=== PATIENT | female | born 1965 | race Caucasian/White ===

== ENCOUNTER → 2022-09-13 10:18 | Outpatient (CLI) | payer OTHER, SELFPAY ==
[2022-09-13 11:01] LABS: Basophils # 0.1 K/mm3 (0-0.2); Basophils % 0.8 % (0.1-2.0); Eosinophils # 0.2 K/mm3 (0.0-0.4); Eosinophils % 2.6 % (0.1-12.0); Hematocrit 45.2 % (37.0-47.0); Hemoglobin 14.2 g/dL (12.2-16.2); Lymphocytes # 2.5 K/mm3 (0.7-4.5); Mean Corpuscular HGB Conc 31.5 g/dL (31.8-35.4); Mean Corpuscular Hemoglobin 28.5 pg (27.0-31.2); Mean Corpuscular Volume 90.5 fl (81-99); Mean Platelet Volume 10.2 fl (7.4-10.4); Monocytes # 0.2 K/mm3 (0.1-1.0); Monocytes % 3.7 % (1.7-9.3); Neutrophils # 2.8 K/mm3 (1.8-7.8); Neutrophils % 48.9 % (37.0-80.0); Platelet Count 166 K/mm3 (142-424); Red Blood Count 4.99 M/mm3 (4.20-5.40); Red Cell Distribution Width 13.6 % (11.5-17.5); White Blood Count 5.7 K/mm3 (4.8-10.8)
[2022-09-13 11:02] LABS: Alanine Aminotransferase 28 U/L (12-78); Albumin Level 4.6 g/dl (3.5-5.0); Albumin/Globulin Ratio 1.2 (1.1-1.8); Alkaline Phosphatase 91 U/L (38-126); Anion Gap 15.5 mEq/L (5-15); Aspartate Amino Transferase 42 U/L (14-36); Bilirubin,Total 0.7 mg/dl (0.2-1.3); Blood Urea Nitrogen 15 mg/dl (7-17); Calcium 9.5 mg/dl (8.4-10.2); Carbon Dioxide 24 mmol/L (22.0-30.0); Chloride 107 mmol/L (98-107); Chol/HDL Ratio 3.5 (1-3.5); Cholesterol 268 mg/dl (140-200); Estimated Glomerular Filt Rate 86 ml/min (>60); GFR (African American) 104 ML/MIN (>60); Globulin 3.7 g/dL (1.3-3.2); Glucose 85 mg/dl (74-100); HDL Cholesterol 76 mg/dl (40-60); Potassium 4.5 mmoL/L (3.5-5.1); Sodium 142 mmol/L (136-145); Total Protein,Serum 8.3 g/dl (6.3-8.2); Triglycerides 126 mg/dl (30-150); VLDL Cholesterol 25 mg/dL (0-40)
[2022-09-13 11:12] LABS: Direct LDL Cholesterol 111.41 mg/dL (100-129)
[2022-09-13 12:20] LABS: Free Thyroxine Index 3.6 ug/dL (5.93-13.13); T4 (Thyroxine) 12.7 ug/dl (5.53-11.0); Triiodothryronine (T3) Uptake 28 % (23.5-40.5)
[2022-09-13 12:34] LABS: Thyroid Stimulating Hormone 0.29 uIU/mL (0.465-4.68)
== END ==
PROVIDERS: PCP Obstetrics & Gynecology; Visit Provider Obstetrics & Gynecology
DX: Z00.00 Encounter for general adult medical examination without abnormal findings (principal); N95.1 Menopausal and female climacteric states
CPT/HCPCS: 36415; 80053; 80061; 84436; 84443; 84479; 85025

== ENCOUNTER → 2022-09-20 15:40 | Outpatient (CLI) | payer OTHER, SELFPAY ==
--- NOTE | 2022-09-20 15:54 | MM_ITS ---
PROCEDURE INFORMATION: Exam: MG Bilateral Screening 3D Mammography Exam date and time: 09/20/2022 3:49 PM Age: 56 years old Clinical indication: Screening examination TECHNIQUE: Imaging protocol: Bilateral Screening tomosynthesis and 2D mammography including computer-aided detection (CAD) when performed. COMPARISON: No relevant prior studies available. FINDINGS: MAMMOGRAPHY: Breast composition: There are scattered areas of fibroglandular density. Mass: None. Architectural distortion: None. Calcifications: No suspicious calcifications. Asymmetric density: None. Skin thickening: None. Axillary adenopathy: None. IMPRESSION: No mammographic evidence of malignancy. Annual screening is recommended unless otherwise clinically indicated. ASSESSMENT: BI-RADS Category 1: Negative
[2022-09-22 10:47] LABS: Thyroid Peroxidase Antibodies 162 IU/mL (0-34)
[2022-09-24 10:12] LABS: Thyroid Stimulating Immunoglob <0.10 IU/L (0.00-0.55)
== END ==
PROVIDERS: PCP Obstetrics & Gynecology; Visit Provider Obstetrics & Gynecology
DX: Z12.31 Encounter for screening mammogram for malignant neoplasm of breast (principal); E05.90 Thyrotoxicosis, unspecified without thyrotoxic crisis or storm
CPT/HCPCS: 36415; 77063; 77067; 84445; 86376

== ENCOUNTER → 2022-09-29 23:29 | Outpatient (CLI) | payer OTHER, SELFPAY ==
[2022-09-29 18:09] LABS: Thyroid Stimulating Hormone 0.15 uIU/mL (0.465-4.68)
== END ==
PROVIDERS: PCP Internal Medicine; Visit Provider Obstetrics & Gynecology
DX: E05.90 Thyrotoxicosis, unspecified without thyrotoxic crisis or storm (principal)
CPT/HCPCS: 84439; 84443

== ENCOUNTER → 2022-10-14 09:52 | Outpatient (CLI) | payer OTHER, SELFPAY ==
--- NOTE | 2022-10-14 09:58 | US_ITS ---
FINAL REPORT CLINICAL HISTORY: Subclinical Hyperthyroidism COMPARISON: None FINDINGS: THYROID ULTRASOUND: The right lobe of the thyroid is enlarged, measuring 5.7 x 1.7 x 1.8 cm in size. The right lobe is heterogeneous in texture. There is a cystic nodule in the right lobe of the thyroid, measuring 4 x 3 x 2 mm in size, a TI-RADS category 1 nodule. The left lobe of the thyroid is enlarged, measuring 5.3 x 1.5 x 1.7 cm in size, and also heterogeneous in texture. There is a 5 x 8 x 4 mm solid hypoechoic nodule in the left lobe of the thyroid gland, a TI-RADS category 4 nodule. The isthmus of the thyroid is 7 mm in size, also heterogeneous in texture. IMPRESSION: Enlarged heterogeneous thyroid gland, as described. Two small nodules are identified, 1 in the right lobe and 1 in the left lobe. Neither nodule requires follow-up by TI-RADS category and size evaluation. Reviewed, Interpreted and Dictated by Joel Jeff III, MD Transcribed by Tatiana Montemayor Authenticated and . [facility]
== END ==
PROVIDERS: PCP Internal Medicine; Visit Provider Internal Medicine
DX: E05.90 Thyrotoxicosis, unspecified without thyrotoxic crisis or storm (principal); R76.8 Other specified abnormal immunological findings in serum
CPT/HCPCS: 76536

== ENCOUNTER 2023-02-24 15:48 | Outpatient (CLI) | payer OTHER, SELFPAY ==
[2023-02-24 16:23] LABS: Basophils # 0.1 K/mm3 (0-0.2); Basophils % 0.7 % (0.1-2.0); Eosinophils # 0.1 K/mm3 (0.0-0.4); Hemoglobin 14.9 g/dL (12.2-16.2); Lymphocytes # 2.8 K/mm3 (0.7-4.5); Lymphocytes % 40.8 % (10-50); Mean Corpuscular Hemoglobin 31.1 pg (27.0-31.2); Mean Corpuscular Volume 91.5 fl (81-99); Mean Platelet Volume 9.9 fl (7.4-10.4); Monocytes # 0.3 K/mm3 (0.1-1.0); Monocytes % 4.9 % (1.7-9.3); Neutrophils # 3.6 K/mm3 (1.8-7.8); Neutrophils % 52.7 % (37.0-80.0); Platelet Count 190 K/mm3 (142-424); Red Blood Count 4.81 M/mm3 (4.20-5.40); Red Cell Distribution Width 13.7 % (11.5-17.5); White Blood Count 6.8 K/mm3 (4.8-10.8)
[2023-02-24 16:42] LABS: Chloride 102 mmol/L (98-107); Potassium 4.8 mmoL/L (3.5-5.1); Sodium 139 mmol/L (136-145)
[2023-02-24 16:45] LABS: Alanine Aminotransferase 24 U/L (12-78); Albumin Level 4.5 g/dl (3.5-5.0); Albumin/Globulin Ratio 1.5 (1.1-1.8); Alkaline Phosphatase 67 U/L (38-126); Anion Gap 13.8 mEq/L (5-15); Aspartate Amino Transferase 28 U/L (14-36); Bilirubin,Total 0.8 mg/dl (0.2-1.3); Blood Urea Nitrogen 11 mg/dl (7-17); Calcium 9.5 mg/dl (8.4-10.2); Carbon Dioxide 28 mmol/L (22.0-30.0); Estimated Glomerular Filt Rate 64 ml/min (>60); GFR (African American) 78 ML/MIN (>60); Globulin 3.1 g/dL (1.3-3.2); Glucose 83 mg/dl (74-100); Total Protein,Serum 7.6 g/dl (6.3-8.2)
[2023-02-24 17:03] LABS: 25-OH Vitamin D, Total 28.1 ng/mL (30-100)
[2023-02-24 17:21] LABS: Ferritin 126 ng/ml (11.1-264)
[2023-02-24 17:50] LABS: Vitamin B12 > 1000 pg/mL (239-931)
[2023-02-24 17:56] LABS: Folate 9.26 ng/mL
== END 2023-02-24 23:59 ==
LOC: LAB 15:49
PROVIDERS: PCP Internal Medicine; Visit Provider Obstetrics & Gynecology
DX: E05.90 Thyrotoxicosis, unspecified without thyrotoxic crisis or storm (principal); R63.4 Abnormal weight loss; R76.8 Other specified abnormal immunological findings in serum; Z86.2 Personal history of diseases of the blood and blood-forming organs and certain disorders involving the immune mechanism; E55.9 Vitamin D deficiency, unspecified; E88.810 Metabolic syndrome
CPT/HCPCS: 36415; 80053; 82306; 82607; 82728; 82746; 83735; 85025

== ENCOUNTER 2023-09-22 10:38 | Outpatient (CLI) | payer OTHER, SELFPAY ==
[2023-09-22 11:37] LABS: Basophils # 0.1 K/mm3 (0-0.2); Basophils % 1.3 % (0.1-2.0); Eosinophils # 0.1 K/mm3 (0.0-0.4); Eosinophils % 1.3 % (0.1-12.0); Hematocrit 45.9 % (37.0-47.0); Hemoglobin 14.4 g/dL (12.2-16.2); Lymphocytes # 2.3 K/mm3 (0.7-4.5); Mean Corpuscular HGB Conc 31.3 g/dL (31.8-35.4); Mean Corpuscular Hemoglobin 30.2 pg (27.0-31.2); Mean Corpuscular Volume 96.4 fl (81-99); Mean Platelet Volume 10.4 fl (7.4-10.4); Monocytes # 0.3 K/mm3 (0.1-1.0); Monocytes % 4.8 % (1.7-9.3); Neutrophils # 2.6 K/mm3 (1.8-7.8); Neutrophils % 49.6 % (37.0-80.0); Platelet Count 190 K/mm3 (142-424); Red Blood Count 4.76 M/mm3 (4.20-5.40); Red Cell Distribution Width 13.8 % (11.5-17.5); White Blood Count 5.3 K/mm3 (4.8-10.8)
[2023-09-22 12:28] LABS: Alanine Aminotransferase 18 U/L (12-78); Albumin Level 4.1 g/dl (3.5-5.0); Albumin/Globulin Ratio 1.3 (1.1-1.8); Alkaline Phosphatase 80 U/L (38-126); Anion Gap 10.5 mEq/L (5-15); Aspartate Amino Transferase 26 U/L (14-36); Bilirubin,Total 0.6 mg/dl (0.2-1.3); Blood Urea Nitrogen 19 mg/dl (7-17); Calcium 9.4 mg/dl (8.4-10.2); Carbon Dioxide 27 mmol/L (22.0-30.0); Chloride 105 mmol/L (98-107); Cholesterol 227 mg/dl (140-200); Estimated Glomerular Filt Rate 74 ml/min (>60); GFR (African American) 89 ML/MIN (>60); Globulin 3.1 g/dL (1.3-3.2); Glucose 73 mg/dl (74-100); Magnesium 1.9 mg/dl (1.6-2.3); Potassium 4.5 mmoL/L (3.5-5.1); Sodium 138 mmol/L (136-145); Total Protein,Serum 7.2 g/dl (6.3-8.2)
[2023-09-22 12:46] LABS: Free T4 (Free Thyroxine) 1.19 ng/dl (0.78-2.19)
[2023-09-22 12:58] LABS: Thyroid Stimulating Hormone < 0.02 uIU/mL (0.465-4.68)
--- NOTE | 2023-09-22 13:08 | MM_ITS ---
PROCEDURE INFORMATION: Exam: MG Bilateral Screening 3D Mammography Exam date and time: 09/22/2023 1:03 PM Age: 57 years old Clinical indication: Screening exam. TECHNIQUE: Imaging protocol: Bilateral Screening tomosynthesis and 2D mammography including computer-aided detection (CAD) when performed. COMPARISON: MG MM DIG SCREENING MAMM BI W/CAD 09/20/2022 3:49 PM FINDINGS: MAMMOGRAPHY: Breast composition: There are scattered areas of fibroglandular density. Mass: No suspicious masses. Architectural distortion: None. Calcifications: No suspicious calcifications. Asymmetric density: None. Skin thickening: None. Axillary adenopathy: None. IMPRESSION: No mammographic evidence of malignancy. Annual screening is recommended unless otherwise clinically indicated. ASSESSMENT: BI-RADS Category 1: Negative
[2023-09-23 08:36] LABS: Thyroid Peroxidase Antibodies 293 IU/mL (0-34); Triiodothyronine (T3) Total 106 ng/dL (71-180)
[2023-09-25 15:29] LABS: Thyroglobulin Level <1.0 IU/mL (0.0-0.9)
[2023-09-29 10:02] LABS: Antinuclear Antibodies (ANA) NEGATIVE; Triiodothyronine (T3) Reverse 26.6
[2023-10-06 09:16] LABS: 1,25 Dihydroxy Vitamin D 33 pg/mL (.); 1,25-Dihydroxy, Vitamin D-2 <10 pg/mL (.); 1,25-Dihydroxy, Vitamin D-3 33 pg/mL (.)
== END 2023-09-22 23:59 | disposition home or self-care (01) ==
LOC: RAD 10:39
PROVIDERS: Nurse Practitioner Family; PCP Internal Medicine; Visit Provider Obstetrics & Gynecology
DX: N95.1 Menopausal and female climacteric states (principal); E05.90 Thyrotoxicosis, unspecified without thyrotoxic crisis or storm; R76.8 Other specified abnormal immunological findings in serum; Z86.2 Personal history of diseases of the blood and blood-forming organs and certain disorders involving the immune mechanism; R63.4 Abnormal weight loss; E06.3 Autoimmune thyroiditis; Z12.31 Encounter for screening mammogram for malignant neoplasm of breast; E55.9 Vitamin D deficiency, unspecified
CPT/HCPCS: 36415; 77063; 77067; 80050; 80053; 82465; 82652; 83735; 84439; 84443; 84480; 84482; 85025; 86038; 86225; 86235; 86376; 86800

== ENCOUNTER 2024-09-27 16:27 | Outpatient (CLI) | payer OTHER, SELFPAY ==
--- OUTSIDE RECORDS SUMMARY | 2024-09-27 16:29 | XMS_ITS | Clinical Summary ---
Author Organization [facility] Address [address] [place] [address] Care Team Providers Care Infectious Diseases Physician Name Role Phone Jeison Balderrama Alcon Primary Care Provider + Allergies No known active allergies Medications estradiol (VIVELLE-DOT) 0.0375 MG/24HR patch Place 1 patch on the skin as directed by provider 2 (Two) Times a Week. 8 patch 2 0 Active progesterone (PROMETRIUM) 100 MG capsule Take 1 capsule by mouth Every Night. 30 capsule 2 0 Active losartan (COZAAR) 50 MG tablet Take 1 tablet by mouth Daily. 3 Active Progesterone (PROMETRIUM) 100 MG capsule Take 1 capsule by mouth Daily. 3 Active Mounjaro 7.5 MG/0.5ML solution pen-injector pen Inject 0.5 mL under the skin into the appropriate area as directed 1 (One) Time Per Week. 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 07/23/2019 Family History Medical History Relation Name Comments Hypertension Father Cassia Brown Pulmonary embolism Father Cassia Brown Rheum arthritis Maternal Grandmother Autoimmune disease Mother affected liver, had transplant Autoimmune disease Sister affecting liver Rheum arthritis Sister Breast cancer Neg Hx Colon cancer Neg Hx Malig Hyperthermia Neg Hx Ovarian cancer Neg Hx Uterine cancer Neg Hx Relation Name Status Comments Father Cassia Brown Maternal Grandmother Mother Sister Alive Social History Tobacco Use Types Packs/Day Years Used Date Smoking Tobacco: Never Smokeless Tobacco: Never Alcohol Use Standard Drinks/Week Comments Yes 1 (1 standard drink = 0.6 oz pur e alcohol) socially AUDIT-C Answer Date Recorded Q1: How often do you have a drink containing alc ohol? 2-4 times a month 06/20/2019 Average Number of Drinks Not on file 020 Frequency of Binge Drinking Not on file 06/06 Abuse Screen Answer Date Recorded Unsafe at Home or Work/School Not on file Feels Threatened by Someone? Not on file 01/2023 Does Anyone Keep You from Co ntacting Others or Doint Things Outside the Home? Not on file 11/17/2022 Physical Sign of Abuse Present Not on file 1 Housing Stability Answer Date Recorded Current Living Arrangements Not on file 11/06 Potentially Unsafe Housing Conditions Not on rand e 11/17/2022 Family and Community Support Answer Carroll e Recorded Help with Day-to-Day Activities Not on file 11/17/2022 Lonely or Isolated Not on file 11/17/2022 Employment Answer Date Recorded Do you want help finding or keeping work or a nabil b? Not on file 11/17/2022 Disabilities Answer Date Recorded Concentrating, Remembering, or Making Decisions Difficulty Not on file 11/17/2022 Doing Errands Independently Difficulty Not on fi le 11/17/2022 Education Answer Date Recorded Help with school or training? Not on file Preferred Language Not on file 11/17/2022 Comments No Sex and Gender Information Value Date Recorded Sex Assigned at Not on file Legal Sex Female 1:42 PM EST Gender Identity Not on file Sexual Orientation Not on file Last Filed Vital Signs Vital Sign Reading Time Taken Comments Blood Pressure 126/74 02/17/2023 8:07 AM EST Pulse 68 02/17/2023 8:07 AM EST Temperature 36.2 C (97.1 F) 08/06/2019 8:25 AM EDT Respiratory Rate 16 08/06/2019 8:50 AM EDT Oxygen Saturation 97% 02/17/2023 8:07 AM EST Inhaled Oxygen Concentration - - Weight 66.7 kg (147 lb) 02/17/2023 8:07 AM EST Height 149.9 cm (4' 11 ) 02/17/2023 8:07 AM EST Body Mass Index 29.69 02/17/2023 8:07 AM EST Plan of Treatment Health Maintenance Due Date Last Done Comments TDAP/TD VACCINES (1 - Tdap) 12/12/1983 COLOGUARD 2009 COLON CANCER SCREENING 5 YEAR SIGMOIDOSCOPY 2009 COLONOSCOPY [address] SCREENING [address] COLONOGRAPHY 2009 FECAL OCCULT BLOOD TEST 2009 FIT Testing (1 year) 2009 Pneumococcal Vaccine 50+ (1 of 1 - PCV) 2014 ZOSTER VACCINE (1 of 2) 2014 ANNUAL PHYSICAL 06/20/2019 HEPATITIS C SCREENING 06/20/2019 Annual Gynecologic Pelvic and Breast Exam 06/20/2020 06/20/2019 MAMMOGRAM 08/15/2021 08/16/2019 COVID-19 Vaccine ( - season) 2023 INFLUENZA VACCINE 11/06/2024 Procedures Procedure Name Priority Date/Time Associated Diagnosis Comments MAMMO SCREENING BILATERAL W CAD Routine 08/16/2019 Screening for condition from Last 3 Months or Most Recently Relevant to Health Maintenance Results * Mammo Screening Bilateral With CAD (08/16/2019) Anatomical Region Laterality Modality Breast Bilateral Mammography Sonia Washburn MD IMG MAMMOGRAPHY ORDER KRIS Final Result from Last 3 Months or Most Recently Relevant to Health Maintenance Insurance [employer] Care Teams Infectious Diseases Physician Relationship Specialty Start Date End Date Jeison Balderrama [address] [place] [address] [place] [id number] PCP - General Internal Medicine 02/17/23
--- OUTSIDE RECORDS SUMMARY | 2024-09-27 16:29 | XMS_ITS | Clinical Summary ---
Author Organization [facility] Address [address] [place] [address] Phone Care Team Providers Care Client Experience Specialist Name Role Phone Unavailable Primary Care Provider Unavailabl e Social History Tobacco Use Types Packs/Day Years Used Date Smoking Tobacco: Never Assessed Comments Unknown Sex and Gender Information Value Date Recorded Sex Assigned at Not on file Legal Sex Female 9:48 PM EDT Gender Identity Not on file Sexual Orientation Not on file Plan of Treatment Health Maintenance Due Date Last Done Comments Annual Wellness Exam 12/12/1967 Hepatitis C Screening 1982 DTaP/TDaP/Td (1 - Tdap) 12/12/1983 Hepatitis B Vaccine (1 of 3 - 19+ 3-dose series) 12/12/1983 Cervical Cancer Screening 1985 Pap Smear 1985 HPV/Pap Cotest 1994 Cologuard 2009 Colon Cancer Screening 2009 Colonoscopy 2009 FIT 2009 Sigmoidoscopy 2009 Virtual Colonography 2009 Breast Cancer Screening 12/01/2010 12/01/2008 Pneumococcal Vaccine 50+ (1 of 1 - PCV) 2014 Zoster (1 of 2) 2014 COVID-19 Vaccine (2023-2 5 season) 2023 Influenza Vaccine (#1) 2024 Meningococcal B Vaccine Aged Out No l onger eligible based on patient's age to complete this topic Procedures Procedure Name Priority Date/Time Associated Diagnosis Comments GC MM DIG SCR JACKIE PANEL W/CAD Routine 12/01/2008 2:25 PM EDT from Last 3 Months or Most Recently Relevant to Health Maintenance Results * MM DIG SCR JACKIE PANEL W/CAD GC (12/01/2008 2:25 PM EDT) Anatomical Region Laterality Modality Other 12/01/2008 2:25 PM EDT Narrative 12/16/2008 9:24 AM EST Procedure-GC MM DIG SCR JACKIE PANEL W/CAD GC MM DIGITAL SCR BILAT PANEL Bilateral CC and MLO view(s) were taken. Prior study comparison- February 08, 2007, mammogram, performed at [facility]. There are scattered fibroglandular densities. Compared to prior studies the most recent being 02/08/07. No significant changes when compared with prior studies. IMPRESSION- No radiographic evidence of malignancy ([id number]) RECOMMENDATION- Routine screening mammogram in 1 year. * The patient with a palpable abnormality, unexplained by breast imaging, should be managed on clinical basis by the attending physician. * Breast imaging has a false negative rate of 15%. * The patient was notified by mail of the results of this examination. The mammogram was reviewed by a Radiologist and CAD. Gradall Operator- JERAMINE SANTOS Reading Physician- ZACHARY BARAHONA MD Released Date Time- 12/16/08 0933 Procedure Note Zachary Barahona - 04/17/2009 Procedure-GC MM DIG SCR JACKIE PANEL W/CAD GC MM DIGITAL SCR BILAT PANEL Bilateral CC and MLO view(s) were taken. Prior study comparison- February 08, 2007, mammogram, performed at [facility]. There are scattered fibroglandular densities. Compared to prior studies the most recent being 02/08/07. No significant changes when compared with prior studies. IMPRESSION- No radiographic evidence of malignancy ([id number]) RECOMMENDATION- Routine screening mammogram in 1 year. * The patient with a palpable abnormality, unexplained by breast imaging, should be managed on clinical basis by the attending physician. * Breast imaging has a false negative rate of 15%. * The patient was notified by mail of the results of this examination. The mammogram was reviewed by a Radiologist and CAD. Gradall Operator- JERMAINE Robbins Physician- ZACHARY BARAHONA MD Released Date Time- 12/16/08 0933 May Rylie Mesa MD [facility] RAD HISTORICAL Final Result from Last 3 Months or Most Recently Relevant to Health Maintenance Insurance [place] [address] [address]
--- NOTE | 2024-09-27 16:30 | XR_ITS ---
PROCEDURE INFORMATION: Exam: XR Right Shoulder Exam date and time: 09/27/2024 4:36 PM Age: 58 years old Clinical indication: Pain; Shoulder; Right; Additional info: Right shoulder pain TECHNIQUE: Imaging protocol: Radiologic exam of the right shoulder. Views: 2 or more views. COMPARISON: No relevant prior studies available. FINDINGS: Bones/joints: No acute fracture or dislocation. No significant loss of joint space. Soft tissues: Unremarkable as visualized. IMPRESSION: No acute findings.
--- NOTE | 2024-09-27 16:30 | XR_ITS ---
PROCEDURE INFORMATION: Exam: XR Left Shoulder Exam date and time: 09/27/2024 4:36 PM Age: 58 years old Clinical indication: Pain; Shoulder; Left; Additional info: Left shoulder pain TECHNIQUE: Imaging protocol: Radiologic exam of the left shoulder. Views: 2 or more views. COMPARISON: No relevant prior studies available. FINDINGS: Bones/joints: No acute fracture or dislocation. No significant loss of joint space. Soft tissues: Unremarkable as visualized. IMPRESSION: No acute findings.
== END 2024-09-27 23:59 | disposition home or self-care (01) ==
LOC: RAD 16:27
PROVIDERS: PCP Internal Medicine; Visit Provider Obstetrics & Gynecology
DX: M25.511 Pain in right shoulder (principal); M25.512 Pain in left shoulder
CPT/HCPCS: 73030

== ENCOUNTER 2024-10-04 15:20 | Outpatient (CLI) | payer OTHER, SELFPAY ==
--- OUTSIDE RECORDS SUMMARY | 2024-10-04 15:22 | XMS_ITS | Clinical Summary ---
Author Organization [facility] Address [address] [place] [address] Phone Care Team Providers Care Real Estate Services Administrator Name Role Phone Unavailable Primary Care Provider [...] comparison- February 08, 2007, mammogram, performed at [facility]. There are scattered fibroglandular densities. Compared to prior studies the most recent being 02/08/07. No significant changes when compared with prior studies. IMPRESSION- No radiographic evidence of malignancy ([id number]) RECOMMENDATION- Routine screening mammogram in 1 year. * The patient with a palpable abnormality, unexplained by breast imaging, should be managed on clinical basis by the attending physician. * Breast imaging has a false negative rate of 15%. * The patient was notified by mail of the results of this examination. The mammogram was reviewed by a Radiologist and CAD. Facility Assistant- JERMAINE SANTOS Reading Physician- ZACHARY BARAHONA MD Released Date Time- 12/16/08 0933 Procedure Note Zachary Barahona - 04/17/2009 Procedure-GC MM DIG SCR JACKIE PANEL W/CAD GC MM DIGITAL SCR BILAT PANEL Bilateral CC and MLO view(s) were taken. Prior study comparison- February 08, 2007, mammogram, performed at [facility]. There are scattered fibroglandular densities. Compared to prior studies the most recent being 02/08/07. No significant changes when compared with prior studies. IMPRESSION- No radiographic evidence of malignancy ([id number]) RECOMMENDATION- Routine screening mammogram in 1 year. * The patient with a palpable abnormality, unexplained by breast imaging, should be managed on clinical basis by the attending physician. * Breast imaging has a false negative rate of 15%. * The patient was notified by mail of the results of this examination. The mammogram was reviewed by a Radiologist and CAD. Facility Assistant- JERMAINE Robbins Physician- ZACHARY BARAHONA MD Released Date Time- 12/16/08 0933 May Rylie Mesa MD [facility] RAD HISTORICAL Final Result from Last 3 Months or Most Recently Relevant to Health Maintenance [place] [address] [place] [address]
--- OUTSIDE RECORDS SUMMARY | 2024-10-04 15:22 | XMS_ITS | Clinical Summary ---
Author Organization [facility] Address [address] [place] [address] Care Team Providers Care Family Life Educator Name Role Phone Jeison Balderrama Alcon Primary [...] to Health Maintenance Insurance [employer] Care Teams Family Life Educator Relationship Specialty Start Date End Date Jeisno Balderrama [address] [place] [id number] PCP - General Internal Medicine 02/17/23
--- NOTE | 2024-10-04 16:00 | MM_ITS ---
PROCEDURE INFORMATION: Exam: MG Bilateral Screening 3D Mammography Exam date and time: 10/04/2024 3:27 PM Age: 58 years old Clinical indication: Screening examination TECHNIQUE: Imaging protocol: Bilateral Screening tomosynthesis and 2D mammography including computer-aided detection (CAD) when performed. COMPARISON: MG MM DIG SCREENING MAMM BI W/CAD 09/22/2023 1:03 PM FINDINGS: MAMMOGRAPHY: Breast composition: There are scattered areas of fibroglandular density. Mass: None. Architectural distortion: None. Calcifications: No suspicious calcifications. Asymmetric density: None. Skin thickening: None. Axillary adenopathy: None. IMPRESSION: No mammographic evidence of malignancy. Annual screening is recommended unless otherwise clinically indicated. ASSESSMENT: BI-RADS Category 1: Negative.
== END 2024-10-04 23:59 | disposition home or self-care (01) ==
LOC: RAD 15:21
PROVIDERS: PCP Internal Medicine; Visit Provider Obstetrics & Gynecology
DX: Z12.31 Encounter for screening mammogram for malignant neoplasm of breast (principal); R92.323 Mammographic fibroglandular density, bilateral breasts
CPT/HCPCS: 77063; 77067